=== PATIENT | male | born 1995 | race Caucasian/White ===

== ENCOUNTER 2016-03-18 10:21 | Emergency (ER) | payer BC, OTHER ==
[~2016-03-18] VITALS: Ht 203.2 cm; Wt 103.6 kg
[2016-03-18 10:25] VITALS: TEMP 36.9; Ht 203.2 cm; Wt 103.6 kg
--- NOTE | 2016-03-18 10:57 | DIAGNOSTIC IMAGING REPORT ---
LEFT FIFTH FINGER 3 VIEWS CLINICAL HISTORY: Fifth finger injury. FINDINGS: 3 views of the left fifth finger are obtained. No prior studies are available for comparison at the time of dictation. The skeletal structures are well mineralized. There is no clear radiographic evidence of fracture. There is dislocation at the proximal phalangeal joint. The middle phalanx is dislocated posteriorly and in the ulnar direction. There is approximately 6 mm of overriding of the proximal and middle phalanges. Overlying soft tissue edema is noted. The fifth metacarpophalangeal and distal interphalangeal joints are preserved. IMPRESSION: 1. There is dislocation at the fifth proximal interphalangeal joint as above with overlying soft tissue edema. 2. No definite fracture is identified. Electronically signed by: Yosvany Berumen M.D. 03/18/2016 10:55 AM Dictated Date/Time: 03/18/2016 10:54 AM
[2016-03-18] MEDS ORDERED: XYLOCAINE 1%/SOD BICARB 20 ML VIAL INFIL ONE (11:15)
[2016-03-18 12:25] VITALS: BP 125/75; PULSE 75; O2SAT 98
--- NOTE | 2016-03-18 12:51 | DIAGNOSTIC IMAGING REPORT ---
LEFT FIFTH FINGER 3 VIEWS CLINICAL HISTORY: Postreduction examination. FINDINGS: 3 views of the left fifth finger are compared to study performed earlier the same day 03/18/2016. The skeletal structures are well mineralized. There has been successful reduction of the dislocated fifth proximal interphalangeal joint with yazidi of near-anatomic alignment. A tiny avulsion fragment is seen anteriorly, likely arising from the volar base of the fifth middle phalanx. No additional findings are concerning for fracture. Overlying soft tissue edema is noted. IMPRESSION: 1. There has been successful reduction of the dislocated fifth proximal interphalangeal joint with yazidi of near-anatomic alignment. 2. Suspect a tiny avulsion fracture from the volar base of the fifth middle phalanx. 3. Soft tissue edema is noted. Electronically signed by: Yosvany Berumen M.D. 03/18/2016 12:49 PM Dictated Date/Time: 03/18/2016 12:48 PM
--- NOTE | 2016-03-18 13:03 | EMERGENCY ROOM VISIT NOTE ---
ED Visit Note First contact with patient: 10:48 CHIEF COMPLAINT: Left fifth finger injury today HISTORY OF PRESENT ILLNESS: This 20-year-old male he was playing volleyball just prior to arrival and injured his left fifth finger. The patient states he went up to block and the ball hit his left fifth finger. He is unsure if it bent the finger back or hip on the tip of the finger. The patient cannot bend the finger. REVIEW OF SYSTEMS: 6 system review was performed and was negative unless stated otherwise in history of present illness. PMH: The patient is healthy; there is no significant medical or surgical history. SOCIAL HISTORY: Patient is a [employer] student. Patient denies tobacco use but admits to occasional alcohol use. PHYSICAL EXAM: Vital Signs: Were reviewed Reviewed Nurse's notes.GEN.: 20-year- old white male appears in no acute distress. MENTAL STATUS: Alert and oriented 3. LEFT FIFTH FINGER: There is an obvious deformity at the PIP joint of the finger with dorsal and lateral dislocation of the middle phalanx. The distal dislocated portion of the finger is pale but is sensate. Capillary refill is normal. EMERGENCY DEPARTMENT COURSE: The patient was evaluated. X-ray of the fifth finger was ordered and interpreted by the radiologist and myself. LEFT FIFTH FINGER 3 VIEWS CLINICAL HISTORY: Fifth finger injury. FINDINGS: 3 views of the left fifth finger are obtained. No prior studies are available for comparison at the time of dictation. The skeletal structures are well mineralized. There is no clear radiographic evidence of fracture. There is dislocation at the proximal phalangeal joint. The middle phalanx is dislocated posteriorly and in the ulnar direction. There is approximately 6 mm of overriding of the proximal and middle phalanges. Overlying soft tissue edema is noted. The fifth metacarpophalangeal and distal interphalangeal joints are preserved. IMPRESSION: 1. There is dislocation at the fifth proximal interphalangeal joint as above with overlying soft tissue edema. 2. No definite fracture is identified. Electronically signed by: Yosvany Berumen M.D. 03/18/2016 10:55 AM Dictated Date/Time: 03/18/2016 10:54 AM I attempted to reduce the dislocation without local anesthesia initially. This was unsuccessful. A digital block was then performed using 1% buffered lidocaine. The joint was reduced by applying a steady and rapid axial distraction of the dislocated portion at the PIP joint while the proximal portion was stabilized with the other hand. Following this motion of the joint was normal and full and the patient could move it normally also. Post- reduction X-ray shows LEFT FIFTH FINGER 3 VIEWS CLINICAL HISTORY: Postreduction examination. FINDINGS: 3 views of the left fifth finger are compared to study performed earlier the same day 03/18/2016. The skeletal structures are well mineralized. There has been successful reduction of the dislocated fifth proximal interphalangeal joint with religious of near-anatomic alignment. A tiny avulsion fragment is seen anteriorly, likely arising from the volar base of the fifth middle phalanx. No additional findings are concerning for fracture. Overlying soft tissue edema is noted. IMPRESSION: 1. There has been successful reduction of the dislocated fifth proximal interphalangeal joint with religious of near-anatomic alignment. 2. Suspect a tiny avulsion fracture from the volar base of the fifth middle phalanx. 3. Soft tissue edema is noted. Electronically signed by: Yosvany Berumen M.D. 03/18/2016 12:49 PM Dictated Date/Time: 03/18/2016 12:48 PM The patient was informed of the findings. The patient's finger was placed in a long metal finger splint and he was discharged home in stable condition. DIAGNOSIS: Dislocated PIP joint of the left fifth finger DISCHARGE INSTRUCTIONS & TREATMENT: Ice and elevation for 24 hours. Ibuprofen, 600 mg every 6 hours for pain. He finger in metal finger splint except for bathing for 2 weeks. Talk with your dog handler or trainer about eligibility to play volleyball. Current/Historical Medications No Active Prescriptions or Reported Meds Vital Signs Date Time Temp Pulse Resp B/P Pulse Ox O2 Delivery O2 Flow Rate FiO2 03/18/16 12:25 75 20 125/75 98 Room Air 03/18/16 10:25 36.9 75 17 139/81 98 Room Air Departure Information Prescriptions No Active Prescriptions or Reported Meds Referrals No Doctor, Assigned (PCP) Patient Instructions [facility]
== END 2016-03-18 13:08 | disposition home or self-care (01) ==
LOC: C.EDB 10:23 → C.EDD 13:08
DX: S63.287A Dislocation of proximal interphalangeal joint of left little finger, initial encounter (principal); W21.06XA Struck by volleyball, initial encounter; Y93.68 Activity, volleyball (beach) (court); Y99.8 Other external cause status